=== PATIENT | male | born 1950 | race Caucasian/White ===

== ENCOUNTER 2017-05-30 06:28 | Observation (INO) | payer MEDICARE, BC ==
[2017-05-30] VITALS (9 sets, daily range): BP systolic 118–173; BP diastolic 48–89; PULSE 68–98; TEMP 97.6–98.3
[~2017-05-30] VITALS: Ht 175.3 cm; Wt 93.3 kg
[~2017-05-30 06:28] MED LIST: ASPIRIN 32325 MG/TAB PO; GLIPIZIDE5 M1 PO; GLIPIZIDE5 MG PO; GLUCOPHAGE500 MG/TAB PO; GLUCOTROL10 MG PO; METFORMIN500 MG PO; PRILOSEC 20MG20 MG PO; SIMVASTATIN80 MG PO; SUPER EPA 1201200 MG PO; TOPROL XL 50MG50 MG PO; ZOCOR 40MG40 MG PO
[2017-05-30] MEDS ORDERED: LOPRESSOR100 MG PO (07:13)
[2017-05-30] MEDS ORDERED: ZOCOR 80MG80 MG PO (07:13)
[2017-05-30] MEDS ORDERED: NOVOLOG FLEX100 U/ML SQ (07:14)
[2017-05-30] MEDS ORDERED: LANTUS SOLOS100 U/ML SQ (07:16)
[2017-05-30] MEDS ORDERED: FLOMAX 0.40.4 MG/CAP PO (07:18)
[2017-05-31] VITALS: BP 143/81; PULSE 88; TEMP 98.3
[2017-05-31 04:00] VITALS: BP 126/84; PULSE 87; TEMP 98.6
[2017-05-31 08:00] VITALS: BP 137/119; PULSE 80; TEMP 98
[2017-05-31] MEDS ORDERED: NORCO 325 MG-7.1 TAB PO (10:14)
[2017-05-31] MEDS ORDERED: ROXICODONE 55 MG/TAB PO (10:15)
== END 2017-05-31 10:30 | disposition home or self-care (01) ==
LOC: SDCO 06:28 → JCC 12:20
DX: M75.121 Complete rotator cuff tear or rupture of right shoulder, not specified as traumatic (principal); E11.9 Type 2 diabetes mellitus without complications; Z79.4 Long term (current) use of insulin; Z95.5 Presence of coronary angioplasty implant and graft; M79.673 Pain in unspecified foot; I10 Essential (primary) hypertension; I25.10 Atherosclerotic heart disease of native coronary artery without angina pectoris
CPT/HCPCS: C1713; G0378; J0171; J0330; J0690; J1100; J1815; J1885; J2250; J2405; J2704; J2795; J3010; J7030

== ENCOUNTER 2018-03-12 13:34 | Day surgery (SDC) | payer MEDICARE, BC ==
[~2018-03-12] VITALS: Ht 175.3 cm; Wt 93.1 kg
[~2018-03-12 13:34] MED LIST changes: +FLOMAX 0.40.4 MG/CAP PO; +LANTUS SOLOS100 U/ML SQ; +LOPRESSOR100 MG PO; +NORCO 325 MG-7.1 TAB PO; +NOVOLOG FLEX100 U/ML SQ; +ROXICODONE 55 MG/TAB PO; +ZOCOR 80MG80 MG PO
[2018-03-12 13:54] VITALS: BP 139/97; PULSE 60; TEMP 97.7
[2018-03-12 15:10] VITALS: BP 126/78; PULSE 75; TEMP 97.6
[2018-03-12 15:30] VITALS: BP 138/79; PULSE 70
[2018-03-12 15:40] VITALS: BP 117/69; PULSE 63
== END 2018-03-12 15:50 | disposition home or self-care (01) ==
LOC: SDCO 13:34
DX: D12.2 Benign neoplasm of ascending colon (principal); K57.30 Diverticulosis of large intestine without perforation or abscess without bleeding; K57.92 Diverticulitis of intestine, part unspecified, without perforation or abscess without bleeding; K21.9 Gastro-esophageal reflux disease without esophagitis; R19.7 Diarrhea, unspecified; E11.9 Type 2 diabetes mellitus without complications
CPT/HCPCS: J2250; J3010

== ENCOUNTER 2019-02-18 03:08 | Observation (INO) | payer MEDICARE, BC ==
[~2019-02-18] VITALS: Ht 175.3 cm; Wt 99.2 kg
[2019-02-18 03:22] LABS: BASO # 0.1 (0.0-0.2); BASO % 0.5 % (0.0-2.0); EOS # 0.2 (0.0-0.7); EOS % 1.7 % (0-4.0); GRAN # 6.1 (1.4-6.5); GRAN % 59.8 % (42.2-75.2); HEMATOCRIT 36.1 % (42.0-52.0); HEMOGLOBIN 12.1 g/dl (13.5-18.0); LYMPH # 2.6 (1.2-3.4); LYMPH % 25.8 % (20.0-51.0); MEAN CELL VOLUME 91 fl (80.0-100.0); MEAN CORPUSCULAR HEMOGLOBIN 30 pg (27.0-31.0); MEAN CORPUSCULAR HGB CONC 34 g/dl (33.0-37.0); MONO # 1.2 (0.1-0.6); MONO % 11.7 % (1.7-9.3); PLATELET COUNT 255 K/mm3 (130-400); RED BLOOD COUNT 3.98 M/mm3 (4.20-5.60); REDCELL DISTRIBUTION WIDTH-CV 13.1 % (11.5-14.5)
[2019-02-18 03:31] LABS: ALANINE AMINOTRANSFERASE 37 U/L (21-72); ALBUMIN 3.8 gm/dL (3.5-5.0); ALKALINE PHOSPHATASE 39 U/L (50-136); ANION GAP 12 mmol/L (7-16); AST,SGOT 29 U/L (15-37); BILIRUBIN,TOTAL 0.6 mg/dL (0.0-1.0); BLOOD UREA NITROGEN 42 mg/dL (9-20); CALCIUM 9.5 mg/dL (8.4-10.2); CARBON DIOXIDE 23 mmol/L (22-30); CHLORIDE 100 mmol/L (98-107); CREATININE, serum 1.13 (0.66-1.25); GLUCOSE 306 mg/dL (74-106); LIPASE 111 U/L (23-300); POTASSIUM 5.1 mmol/L (3.4-5.0); SODIUM 136 mmol/L (137-145); TOTAL PROTEIN 6.6 gm/dL (6.4-8.2)
[2019-02-18] MEDS ORDERED: IRON18 MG1 (03:47)
[2019-02-18] MEDS ORDERED: ASPIRIN 81M81 MG/TA2 PO (03:47)
[2019-02-18] MEDS ORDERED: OMEGA-3 1000 MG1 CAP PO (03:47)
[2019-02-18 03:48] LABS: TROPONIN-I < 0.012 ng/mL (0.000-0.035)
[2019-02-18] MEDS ORDERED: LOPRESSOR 225 MG/TAB PO (03:48)
[2019-02-18] MEDS ORDERED: GLUCOPHAGE1000 MG PO (03:48)
[2019-02-18] MEDS ORDERED: ZOCOR 40MG40 MG PO (03:48)
[2019-02-18] MEDS ORDERED: HUMALOG100 U/ML SQ (03:49)
[2019-02-18] MEDS ORDERED: LANTUS100 U/ML SQ (03:49)
[2019-02-18 05:33] LABS: COLLECTION METHOD CLEAN CATCH
[2019-02-18 05:43] LABS: MUCOUS Present /lpf; PH 5 (5-8); SQUAMOUS EPITHELIAL None Seen /hpf; URINE APPEARANCE Clear; URINE BACTERIA None Seen /hpf; URINE BILIRUBIN Negative (NEGATIVE); URINE BLOOD Negative (NEGATIVE); URINE COLOR Straw; URINE GLUCOSE 3+ (NEGATIVE); URINE KETONE Trace (NEGATIVE); URINE LEUKOCYTE ESTERASE Negative (NEGATIVE); URINE NITRATE Negative (NEGATIVE); URINE PROTEIN(semi-quant) Negative (NEGATIVE); URINE RBC 0-2 /hpf; URINE UROBILINOGEN Negative (NEGATIVE)
[2019-02-18 07:42] VITALS: BP 131/65; PULSE 87; TEMP 98.1
--- NOTE | 2019-02-18 08:43 | NUR ---
patient arrived to room 352 from ER at 0730, Assessment completed, alert/oriented, vital signs stable, report some abdomen discomfort, reports nausea is improved, still feeling weak and a little lightheaded, heart RRR/ SR on tele with a bundle branch block, lungs CTA/ no resp.difficulty noted, meds/pharmacy/allergies reveiwed with patient, present upon admisison, Notified hospitalist of his arrival, started IVF and will continue to monitor
[2019-02-18 11:35] VITALS: BP 151/77; PULSE 94; TEMP 98.2
[2019-02-18 15:52] VITALS: BP 151/77; PULSE 94
--- NOTE | 2019-02-18 16:42 | NUR ---
SURYA met with patient and his family to discuss discharge planning. Patient lives independently at home with his . Patient uses the [facility] for primary care and he obtains prescriptions from [facility]. Patient does not use any DME or home health services. Patient does have advanced directives and his family will bring a copy for the chart. SW does not anticipate any discharge needs.
[2019-02-18 19:56] VITALS: BP 157/78; PULSE 116; TEMP 98.2
--- NOTE | 2019-02-18 22:20 | NUR ---
Resting in bed. Assessment complete. Lungs clear. Heart sounds normal. Bowels active x4. Pusles strong throughout. No edema noted. IV to right wrist infusing without complications. Denies pain. Denies needs at this time. Call light in reach.
--- NOTE | 2019-02-18 23:47 | NUR ---
Resting in bed. Call light in reach.
[2019-02-19] VITALS (13 sets, daily range): BP systolic 123–152; BP diastolic 63–91; PULSE 80–102; TEMP 97.5–98.4
--- NOTE | 2019-02-19 02:00 | NUR ---
Resting in bed asleep
--- NOTE | 2019-02-19 04:28 | NUR ---
Resting in bed. Call light in reach.
[2019-02-19 07:03] LABS: BASO % 0.6 % (0.0-2.0); EOS # 0.2 (0.0-0.7); EOS % 3.4 % (0-4.0); GRAN # 2.5 (1.4-6.5); GRAN % 46.5 % (42.2-75.2); LYMPH % 37.6 % (20.0-51.0); MEAN CELL VOLUME 91 fl (80.0-100.0); MEAN CORPUSCULAR HGB CONC 33 g/dl (33.0-37.0); MEAN PLATELET VOLUME 9.8 fl (7.4-10.4); MONO # 0.6 (0.1-0.6); MONO % 11.5 % (1.7-9.3); PLATELET COUNT 171 K/mm3 (130-400); RED BLOOD COUNT 3.02 M/mm3 (4.20-5.60); REDCELL DISTRIBUTION WIDTH-CV 13.5 % (11.5-14.5)
[2019-02-19 07:18] LABS: HEMATOCRIT 27.6 % (42.0-52.0); HEMOGLOBIN 9.1 g/dl (13.5-18.0); MEAN CORPUSCULAR HEMOGLOBIN 30 pg (27.0-31.0)
[2019-02-19 07:20] LABS: CALCIUM 8.9 mg/dL (8.4-10.2); CREATININE, serum 0.89 (0.66-1.25); MAGNESIUM 1.8 mg/dL (1.6-2.3); POTASSIUM 4.1 mmol/L (3.4-5.0)
--- NOTE | 2019-02-19 07:30 | NUR ---
Report given to MARTIN Cerrato. Resting in bed this AM. Patient had uneventful night. No reports of chest pain or discomfort throughout night.
--- NOTE | 2019-02-19 07:39 | NUR ---
Report from Saida SALAZAR.
--- NOTE | 2019-02-19 08:52 | NUR ---
PT TO STRESS TEST AT THIS TIME.
--- NOTE | 2019-02-19 10:34 | NUR ---
Initial visit; Patient undergoing tests, Business Development Director spoke with his , offering spiritual care and God's blessings for good reports.
--- NOTE | 2019-02-19 11:13 | NUR ---
PT RETURNED FROM PROCEEDURE, SITTING UP IN BED. WOULD LIKE DIET ORDER, WILL CONTACT PHYSICAIN FOR ORDER. PT IS A/0 X3. INDEPENDENT IN ROOM.
[2019-02-19] MEDS ORDERED: PROTONIX 40MG T40 MG PO (16:18)
--- NOTE | 2019-02-19 17:03 | NUR ---
PT TO ROOM 352 PER BED POST PROCEEDURE WITH REPORT FROM RAFAEL RN @1600. DR MORA IN TO SEE PT AND HE WILL DISCHARGE LATER THIS SHIFT.
--- NOTE | 2019-02-19 17:41 | NUR ---
DISCONTINUED INT X2. PT TOLERATED WELL.
--- NOTE | 2019-02-19 17:57 | NUR ---
DISCHARGE ORDERS REVIEWED WITH PATIENT AND FAMILY, QUESTIONS ANSWERED. PT ESCOORTED AMBULATORY TO FRONT BY STAFF.
== END 2019-02-19 17:58 | disposition home or self-care (01) ==
LOC: COL.ER 03:08 → MEDICAL 04:57
PROVIDERS: Emergency Medicine; ADMIT Internal Medicine
DX: K21.9 Gastro-esophageal reflux disease without esophagitis (principal); K29.30 Chronic superficial gastritis without bleeding; K92.1 Melena; D64.9 Anemia, unspecified; E87.2 Acidosis; E87.6 Hypokalemia; E11.9 Type 2 diabetes mellitus without complications; I10 Essential (primary) hypertension; E78.5 Hyperlipidemia, unspecified; Z79.82 Long term (current) use of aspirin; Z79.84 Long term (current) use of oral hypoglycemic drugs; Z79.4 Long term (current) use of insulin; I25.10 Atherosclerotic heart disease of native coronary artery without angina pectoris; Z95.5 Presence of coronary angioplasty implant and graft; Z91.018 Allergy to other foods; Z82.49 Family history of ischemic heart disease and other diseases of the circulatory system
CPT/HCPCS: A9500; C9113; G0378; J1815; J2405; J2543; J2550; J2704; J2785; J3010; J7030; Q9967

== ENCOUNTER 2021-09-26 18:39 | Emergency (ER) | payer MEDICARE, BC ==
[~2021-09-26] VITALS: Ht 175.3 cm; Wt 97.7 kg
[~2021-09-26 18:39] MED LIST changes: +ASPIRIN 81M81 MG/TA2 PO; +CIPRO 500MG TA500 MG PO; +FLAGYL500 MG PO; +GLUCOPHAGE1000 MG PO; +HUMALOG100 U/ML SQ; +IRON18 MG1; +LANTUS100 U/ML SQ; +LOPRESSOR 225 MG/TAB PO; +OMEGA-3 1000 MG1 CAP PO; +PROTONIX 40MG T40 MG PO
[2021-09-26 18:45] VITALS: TEMP 98.2
[2021-09-26 21:44] VITALS: BP 139/95; PULSE 82
[2021-09-26] MEDS ORDERED: FLEXERIL 1010 MG/TAB PO (21:47)
== END 2021-09-26 21:47 | disposition home or self-care (01) ==
LOC: COL.ER 18:39
DX: S09.90XA Unspecified injury of head, initial encounter (principal); S01.01XA Laceration without foreign body of scalp, initial encounter; S39.012A Strain of muscle, fascia and tendon of lower back, initial encounter; E11.9 Type 2 diabetes mellitus without complications; K21.9 Gastro-esophageal reflux disease without esophagitis; E78.5 Hyperlipidemia, unspecified; Z79.84 Long term (current) use of oral hypoglycemic drugs; Z79.899 Other long term (current) drug therapy; Z79.4 Long term (current) use of insulin; W01.198A Fall on same level from slipping, tripping and stumbling with subsequent striking against other object, initial encounter

== ENCOUNTER → 2021-10-02 | Outpatient (CLI) | payer MEDICARE, BC ==
[~2021-10-02] MED LIST changes: +FLEXERIL 1010 MG/TAB PO
[2021-10-02 10:09] VITALS: BP 138/64; PULSE 71; TEMP 98
== END ==
LOC: COL.ER 09:59
DX: Z48.02 Encounter for removal of sutures (principal)